=== PATIENT | female | born 1995 | race Caucasian/White ===

== ENCOUNTER 2021-08-04 08:23 | Outpatient (CLI) | payer BC ==
[~2021-08-04] VITALS: Ht 165.1 cm; Wt 76.4 kg
[~2021-08-04 08:23] MED LIST: PRENATAL TABLET PO; VALTREX 50500 MG/TAB PO
--- NOTE | 2021-08-04 08:45 | NUR ---
G1 at 37.0 weeks gestation to LDR2 for scheduled external cephalic version. Patient changed into gown. EFMs explained and applied. FHR category 1. VSS. Assessment completed and consent signed. INT placed in left hand. Plan of care reviewed with patient and spouse.
[2021-08-04 08:55] VITALS: BP 135/85; PULSE 76; TEMP 97.8
--- NOTE | 2021-08-04 09:30 | NUR ---
0910 Dr. Chahal and Dr. العراقي at bedside for external cephalic version. Breech presentation confirmed with bedside sono. 0.125 ml of terbutaline given IV per orders. See physician notification for details of procedure. 0923 External cephalic version successful, EFM reapplied. Plan of care reviewed with patient and spouse.
[2021-08-04 09:45] VITALS: BP 147/85; PULSE 92
[2021-08-04 10:00] VITALS: BP 136/83; PULSE 79
[2021-08-04 10:30] VITALS: BP 131/86; PULSE 80
--- NOTE | 2021-08-04 10:35 | NUR ---
Patient reports good movement over the past hour. Irregular contractions per toco, patient states that she can feel her abdomen tighten but is not having any cramping or pain with them. INT removed and discharge instructions reviewed with patient and spouse.
== END 2021-08-04 10:50 | disposition home or self-care (01) ==
LOC: LDRO 08:23
DX: O32.1XX0 Maternal care for breech presentation, not applicable or unspecified (principal); Z3A.37 37 weeks gestation of pregnancy
CPT/HCPCS: J3105

== ENCOUNTER 2021-08-22 23:21 | Inpatient (IN) | payer BC ==
[~2021-08-22] VITALS: Ht 165.1 cm; Wt 77.7 kg
[2021-08-22 23:30] VITALS: BP 152/97; PULSE 91; TEMP 97.7
--- NOTE | 2021-08-22 23:30 | NUR ---
2330 G1L0 39.5 WEEK GEST TO LR6 WITH C/O SROM AT 2300. VERY UNCOMFORTABLE WITH CONTRACTIONS. EFM. SVE /-2 WITH NEG AMNIOTRACE AND NO AMNIOTIC FLUID NOTED. ADM ASSESSMENT COMPLETED. HX HSV TAKING VALTREX. HAD SUCCESSFUL VERSION AT 37 WEEKS GEST. STATES HAS HAD SOME ELEVATED B/P ON HER LAST COUPLE OF OFFICE VISITS.
[2021-08-23] VITALS (40 sets, daily range): BP systolic 99–148; BP diastolic 54–92; PULSE 73–125; TEMP 97.6–98.7
--- NOTE | 2021-08-23 00:15 | NUR ---
0015 DR ZENG NOTIFIED AND ORDERS RECEIVED. 0035 IV FLUIDS STARTED AND PERMITS SIGNED. BRAKE TESTER NOTIFED OF EPIDURAL NEED.
--- NOTE | 2021-08-23 00:50 | NUR ---
0055 SITTING ON SIDE OF BED FOR EPID PLACEMENT. 0106 EPID DOSED. SEE ANESTHSIA RECORD FOR MORE INFORMATION. REMAINS UNCOMFORTABLE WITH CONTRACTIONS AFTER EPID PLACEMENT.
[2021-08-23 01:19] LABS: BASO % 0.3 % (0.0-2.0); EOS # 0.1 K/mm3 (0.0-0.7); EOS % 0.4 % (0.0-4.0); GRAN # 10.4 K/mm3 (1.4-6.5); GRAN % 79.3 % (42.2-75.2); HEMOGLOBIN 11.9 g/dl (12.5-16.0); LYMPH # 1.7 K/mm3 (1.2-3.4); LYMPH % 12.8 % (20.0-51.0); MEAN CELL VOLUME 89 fl (80.0-100.0); MEAN CORPUSCULAR HEMOGLOBIN 30 pg (27-31); MEAN CORPUSCULAR HGB CONC 34 g/dl (33.0-37.0); MONO # 0.8 K/mm3 (0.1-0.6); MONO % 6.4 % (1.7-9.3); PLATELET COUNT 149 K/mm3 (130-400); RED BLOOD COUNT 3.92 M/mm3 (4.10-5.30); REDCELL DISTRIBUTION WIDTH-CV 14.8 % (11.5-14.5)
[2021-08-23 01:23] LABS: HEMATOCRIT 34.9 % (37.0-47.0)
--- NOTE | 2021-08-23 01:30 | NUR ---
0130 NO RELIEF FROM EPIDURAL.
[2021-08-23 01:36] LABS: BILIRUBIN,TOTAL 0.4 mg/dL (0.2-1.2); CREATININE, serum 0.73 mg/dL (0.57-1.11); POTASSIUM 3.9 mmol/L (3.5-4.5)
--- NOTE | 2021-08-23 01:45 | NUR ---
0145 NO RELIEF FROM EPID. RN ER NOTIFIED. 0150 SITTING UP ON SIDE OF BED. EPID REMOVED BY RN ER AND REPLACED. 0155 EPID DOSED. SEE ANESTHSIA RECORDS FOR MORE INFORMATION.
[2021-08-23 02:34] LABS: COLLECTION METHOD CATHETER
[2021-08-23 02:46] LABS: MUCOUS Present (NOT PRESENT); PH 8 (5-8); SQUAMOUS EPITHELIAL 0-2 /hpf (0-10); URINE APPEARANCE Cloudy (CLEAR/HAZY); URINE BACTERIA None Seen /hpf (NONE SEEN); URINE BILIRUBIN Negative (NEGATIVE); URINE BLOOD 3+ (NEGATIVE); URINE COLOR Yellow (YELLOW); URINE GLUCOSE Negative (NEGATIVE); URINE KETONE 1+ (NEGATIVE); URINE LEUKOCYTE ESTERASE Negative (NEGATIVE); URINE NITRATE Negative (NEGATIVE); URINE PROTEIN(semi-quant) 1+ (NEGATIVE); URINE RBC >50 /hpf (0-2); URINE UROBILINOGEN Negative (NEGATIVE)
--- NOTE | 2021-08-23 05:15 | NUR ---
0515 SVE. MOD AMOUNT CL FLUID NOTED WITH VAG EXAM. SM CERVIX NOTED ON LEFT POSTERIOR SIDE OF BABYS HEAD. TURNED TO RIGHT LATERAL. DR ZENG HERE. REPORT GIVEN AND STRIP REVIEWED BY DR ZENG.
--- NOTE | 2021-08-23 06:50 | NUR ---
0650Pt visibly uncomfortable with contractions. Reports intense rectal pressure. Pushes patient controlled epidural bolus button. SVE C/+2. Magaly care provided and patient repositioned in bed. Practice push with patient at this time. Moves vertex. Plan of care reviewed. 0702Dr. Roles updated on pt. See physician notification. 0705Catheter removed. Magaly care provided. Pushing reviewed. 0707Patient begins to push with contractions with RN at bedside. Strong maternal effort. Moves vertex well. 0732Dr. Roles to bedside to evaluate pushing efforts. Dr. Barillas remains at bedside and pt prepped for delivery. 0745Spontaneous vaginal delivery of viable male infant. Meconium stained fluid noted with delivery. [place] to mother's chest where dried and stimulated by nursery RN. 0747Cord clamped x2 and cut by father of . Care of assumed by Olga Mcdowell RN. 0749Spontaneous and intact delivery of placenta. Pitocin to 333ml/hr per protocol. Fundus firm, midline, with moderate bleeding. Second degree perineal laceration repaired by Dr. Barillas. 0755Fundus firm, midline, and bleeding minimal. Magaly care provided, pads changed and ice pack to perineum. Plan of care and safety precautions reviewed. Pt verbalizes understanding. See doctor dictation, anesthesia record, and nurses notes. Call light within reach.
[2021-08-24 04:00] VITALS: BP 119/75; PULSE 96; TEMP 97.7
[2021-08-24 08:15] VITALS: BP 113/90; PULSE 92; TEMP 97.8
[2021-08-24] MEDS ORDERED: IBU800 M1 PO (08:55)
--- NOTE | 2021-08-24 09:21 | NUR ---
Initial visit; Parents thanked Training And Development Officer for offering congratulations and God's blessings for the of their son. Training And Development Officer thanked family for choosing [facility].
== END 2021-08-24 16:55 | disposition home or self-care (01) | DRG 806 ==
LOC: LDRO 23:21 → LDR 23:31 → LDRO 23:32 → LDR 23:33 → OB 23:33
PROVIDERS: Obstetrics & Gynecology; ADMIT Student in an Organized Health Care Education/Training Program
PROC: 10E0XZZ Delivery of Products of Conception, External Approach (ICD-10-PCS; principal; 2021-08-23)
PROC: 0KQM0ZZ Repair Perineum Muscle, Open Approach (ICD-10-PCS; 2021-08-23)
DX: O13.4 Gestational [pregnancy-induced] hypertension without significant proteinuria, complicating childbirth (principal); O98.32 Other infections with a predominantly sexual mode of transmission complicating childbirth; Z37.0 Single live birth; A60.09 Herpesviral infection of other urogenital tract; O77.0 Labor and delivery complicated by meconium in amniotic fluid; O70.1 Second degree perineal laceration during delivery; Z3A.39 39 weeks gestation of pregnancy
CPT/HCPCS: J2590; J7120